=== PATIENT | male | born 1985 | race Caucasian/White ===

== ENCOUNTER 2020-09-01 12:49 | Emergency (ER) | payer MEDICAID, SELFPAY ==
[2020-09-01 12:51] VITALS: BP 126/82; PULSE 63; RESP 16; TEMP 36.9; O2SAT 98; BMI 29.7
--- NOTE | 2020-09-01 13:12 | HMH.EDGENADL ---
ED Disposition Clinical Impression: Abscess Disposition: Home, Self-Care Condition on Discharge: Good Instructions: DI for Skin Abscess Additional Instructions: You have been evaluated for skin infection, abscess. Please take Bactrim as prescribed. Keep the wound clean and dry for 24 hours. You may shower normally after that. Monitor for signs of infection, wound drainage, fevers, chills. Follow-up with your primary care doctor for wound check in 2 to 3 days. Return to the emergency department for any new or worsening symptoms. Prescriptions: Sulfamethoxazole/Trimethoprim [Bactrim DS tablet] 1 each PO BID #14 tab Transmission Status: Pending to Count Includes [facility] [id number] Referrals: Skyla Barker [Primary Care Provider] - Time of Disposition: 13:23 - Critical Care Critical Care Time: No Attestation: On 09/01/20, the high probability of a clinically significant, sudden or life threatening deterioration of the following system(s) required my full and direct attention, intervention and personal management. The time I documented below is in addition to time spent performing reported procedures but includes the following listed in this critical care notation. Medical Decision Making - Medical Records Medical records reviewed: Yes: I reviewed the patient's medical records. - Vladimir Inquiry Pt receiving controlled substance: No Vital Signs: 09/01/20 12:51 Temperature 98.4 F Temperature Source Oral Pulse Rate [Radial] 63 Respiratory Rate 16 Blood Pressure [Right Arm] 126/82 Blood Pressure Mean [Right Arm] 96 Blood Pressure Position [Right Arm] Sitting 02 Sat by Pulse Oximetry 98 Oxygen Delivery Method Room Air Medical Decision Narrative: In summary this is a 35-year-old male presenting to the emergency department with an area of painful swelling on his right upper inner arm. Patient clinically stable on arrival. Vital signs within normal limits. Physical exam is concerning for abscess versus cellulitis. He has already had drainage of purulence, concern for MRSA. Area anesthetized with 1% lidocaine. Small incision made. Drainage of 1 cc of fluid. No loculations. Patient's tetanus updated. Given prescription for Bactrim. Recommended to take as prescribed and to follow-up with his PCP for wound check in 5 to 7 days. Patient agreeable with plan and stable for discharge. General Adult HPI - General Chief complaint: Skin/Abscess/Foreign Body Stated complaint: possible staph infection right arm Time Seen by Provider: 09/01/20 13:16 Mode of Arrival: Ambulatory Limitations: No Limitations Description of Symptoms (Recalled from ER Triage Doc. by RN): TO ED PER PVT CAR WITH C/O SKIN INFECTION RT UPPER ARM STARTING TUESDAY. STATES YESTERDAY I POPPED IT AND WHITE STUFF CAME OUT PT DENIES ANY FEVER, CHILLS. - History of Present Illness HPI narrative: 35-year-old male presenting to the emergency department with a skin wound. For the past few days he has had an area of red, painful swelling on his right inner upper arm. It was initially small, now 2 cm x 2 cm in size. Yesterday it came to ahead and he drained some yellowish-white liquid. Continues to have surrounding erythema. No fevers, chills, nausea, vomiting. He does not remember his most recent tetanus vaccination. No recent antibiotics. Denies history of MRSA. - Related Data Previous Rx's Medication Instructions Recorded Sulfamethoxazole/Trimethoprim 1 each PO BID #14 tab 09/01/20 [Bactrim DS tablet] Allergies Allergy/AdvReac Type Severity Reaction Status Date / Time No Known Allergies Allergy Unverified 03/22/17 15:36 [facility] History - Hepatitis A Screen Drug use history?: No High risk sexual behaviors?: No History of sexually transmitted infection?: No Currently employed?: No Childcare worker?: No Do you have indoor plumbing?: Yes Do you have electricity?: Yes Attestation statement:: This patient has been screened for Hepatit
[2020-09-01 14:02] VITALS: BP 126/82; PULSE 63; RESP 16; TEMP 36.8; O2SAT 98
== END 2020-09-01 14:06 | disposition home or self-care (01) ==
PROVIDERS: Emergency Provider Emergency Medicine; PCP Nurse Practitioner
DX: L02.413 Cutaneous abscess of right upper limb (principal); Z23 Encounter for immunization
CPT/HCPCS: 10060; 90715; 96372; 99281

== ENCOUNTER 2024-09-19 12:04 | Emergency (ER) | payer MEDICAID, SELFPAY ==
[2024-09-19] VITALS (8 sets, daily range): BP systolic 120–152; BP diastolic 85–106; PULSE 68–96; RESP 14–20; TEMP 36.5–36.6; O2SAT 95–98; BMI 31.6
--- OUTSIDE RECORDS SUMMARY | 2024-09-19 12:17 | XMS_ITS | Continuity of Care Document ---
Author Organization Formerly [facility]. If a dditional information is needed, contact Health Information Management at [phone] [place] [address] Phone Care Team Providers Care Methods Time Analyst Name Role Phone Unavailable Unavailable Unavailable Unavailable Unavailable Unavailable Problems Nausea Onset:02-Nov-2019 Tawanda HAGER Status:Acute Epigastric pain Onset:02-Nov-2019 Tawanda HAGER Status:Acute Allergies and Adverse Reactions No Known Allergies(Allergy) Onset: 02-Nov-2019 Medications Reglan;0 .ROUTE .COMPLEX Start:02-Nov-2019 Status:Aborted Comments:0 .ROUTE .COMPLEX Social History Smoking Status Never smoked tobacco Recorded: 02-Nov-2019
--- NOTE | 2024-09-19 12:19 | ED_ITS ---
<Statement entered by France Helton MD - 09/19/24 15:18> I was consulted by the NICK, and we discussed the complexity of the problems being addressed. I approved the treatment and management plan for this patient's care in the emergency department, thus performing a substantive portion of the medical decision making. France Helton MD, CHHAYA, FACEP Discharge Plan Disposition Patient Disposition: Home, Self-Care Condition: Good Prescriptions Prescriptions: No Action sulfamethoxazole-trimethoprim 1 EACH tablet 1 each PO BID Qty: 14 0RF buprenorphine-naloxone [Suboxone] 8-2 mg Tablet, Sublingual 1 tab SUBLINGUAL DAILY Patient Comments: PT states he takes 14 mg daily. PT stated he is trying to taper himself down on own. Referrals Follow up/Referrals: Gustavo Phillips DO [Staff Physician, Family Practice] - See instructions Provider,Mylene, [Primary Care Provider, Medical] - See instructions Gary Duran MD [Staff Physician, Cardiology] - See instructions Activity Restrictions/Add. Instructions Additional Instructions/Restrictions: As we discussed I have given you referral both to primary care Dr. Phillips and cardiology. If you have persistent new or worsening signs or symptoms please establish care with your PCP see cardiology return to the ER as needed. Clinical Impressions Clinical Impression: Chest pain on breathing Print Language Print Language: Japanese Discharge ED Provider: France Helton [facility] General Chief Complaint: Shortness of Breath/Dyspnea Stated Complaint: SOA Time Seen by Provider: 09/19/24 12:19 History of Present Illness HPI narrative: Patient presents for evaluation of dyspnea. Patient states that he has had left-sided chest pain with inspiration since this morning. He denies any known trauma. He does not smoke has not run recently ill has no known medical problems and is on no home medications. He denies any fever chills hemoptysis hematochezia melena hematemesis hematuria. Related Data Home Medications ?Medication ?Instructions ?Recorded ?Confirmed buprenorphine 8 mg-naloxone 2 mg 1 tab sublingual GISELL Y 09/19/24 09/19/24 sublingual tablet Previous Rx's ?Medication ?Instructions ?Recorded sulfamethoxazole 800 1 each PO BID #14 tabs 09/01 mg-trimethoprim 160 mg tablet Allergies Allergy/AdvReac Type Severity Reaction Status Date / Time No Known Allergies Allergy Unverified 03/22/17 15:36 [facility] Disclaimer: The information contained in this section may have been updated after the patient was seen, as this information can be updated by other users. Social History Smoking Status: Never smoker alcohol intake: never current occupational status: employed Travel in the last 8 weeks?: None Other Medical History Have you received the Flu Vaccine for this season: No Have you received the Pneumonia Vaccine: No ROS Obtained: Yes Systems reviewed as appropriate & no additional complaints except as documented Physical Exam General General appearance: alert and in no apparent distress Respiratory Respiratory exam: Present normal lung sounds bilaterally Cardiovascular Cardiovascular exam: Present regular rate Neurological Exam Neurological exam: Present alert and oriented X3 HEART Score HEART Score HEART Score assessment performed?: Yes History (anamnesis): Slightly suspicious ECG: Normal Age: <45 years Risk factors: 1-2 risk factors Troponin: </= normal limit HEART Score: 1 Critical Care Critical Care Time Critical Care Time: No Medical Decision Making Medical Records Medical records reviewed: Yes I reviewed the patient's medical records. Vladimir Inquiry Pt receiving controlled substance: No Vital Signs Vital Signs: 09/19/24 12:16 09/19/24 12:20 09/19/24 12:48 Temperature 97.7 F Temperature Source Oral Pulse Rate 74 79 Pulse Rate [Right] 96 H Respiratory Rate 18 20 Blood Pressure 152/106 H 120/90 Blood Pressure [Right Arm] 152/106 H Blood Pressure Mean [Right Arm] 121 02 Sat by Pulse Oximetry 98 98 95 Oxygen Delivery Method Room Air Room Air Room Air 09/19/24 13:00 Temperature Temperature Source Pulse Rate 72 Pulse Rate [Right] Respiratory Rate 15 Blood Pressure 132/93 H Blood Pressure [Right Arm] Blood Pressure Mean [Right Arm] 02 Sat by Pulse Oximetry 96 Oxygen Delivery Method Room Air Lab Data Lab results reviewed: Yes I reviewed the patient's lab results. Labs: Lab Results 09/19/24 12:47: WBC 5.8, RBC 5.58, Hgb 15.6, Hct 45.9, MCV 82.3, MCH 28.0, MCHC 34.0, RDW 13.1, Plt Count 337, MPV 9.3, Neut % (Auto) 54.9, Lymph % (Auto) 34.4, Haywood % (Auto) 8.3, Eos % (Auto) 1.6, Baso % (Auto) 0.5, Neut # (Auto) 3.2, Lymph # (Auto) 2.0, Haywood # (Auto) 0.5, Eos # (Auto) 0.1, Baso # (Auto) 0.0, D-Dimer 0.39, Sodium 141, Potassium 4.0, Chloride 107, Carbon Dioxide 27, Anion Gap 11.0, BUN 11, Creatinine 0.90, Estimated Creat Clear 173, Estimated GFR 95, Est GFR ( Amer) 115, Glucose 91, Calcium 10.4 H, Total Bilirubin 0.7, AST 31, ALT 22, Alkaline Phosphatase 72, Troponin I < 0.01, Total Protein 8.7 H, Albumin 4.9, Globulin 3.8 H, Albumin/Globulin Ratio 1.3 09/19/24 12:47 09/19/24 12:47 Response Orders (Tests/Meds): ED MEDICATIONS Discontinued Medications Generic Name Dose Route Start Last Admin Trade Name Freq PRN Reason Stop Dose Admin Acetaminophen 1,000 mg 09/19/24 12:23 09/19/24 12:50 Acetaminophen 500mg Tab PO 09/19/24 12:24 1,000 mg ONCE ONE Administration Ketorolac Tromethamine 15 mg 09/19/24 12:23 09/19/24 12:49 Ketorolac 30mg/Ml Vial IV 09/19/24 12:24 15 mg ONCE ONE Administration ORDERS Category Date Time Status Chest XR 2 view (NOT portable) [XR chest 2V] Stat Exams 09/19/24 12:23 Taken CBC w/Auto Diff [Complete Blood Count Auto Diff] Stat Lab 09/19/24 12:47 Completed CMP [Comprehensive Metabolic Panel] Stat Lab 09/19/24 12:47 Completed D-Dimer Stat Lab 09/19/24 12:47 Completed Trop I [Troponin I] Stat Lab 09/19/24 12:47 Completed Troponin I Q3H Lab 09/19/24 15:30 Ordered Troponin I Q3H Lab 09/19/24 18:30 Ordered MDM Narrative Medical Decision Narrative: In summary patient is a 39-year-old male who presents to the emergency department for evaluation of left-sided pain with inspiration. Patient is hemodynamically stable upon arrival, afebrile. Exam is remarkable for no reproducible discomfort on palpation on inspiration or expiration, breath sounds clear and equal bilaterally to the bases without adventitious sounds or increased work of breathing, cardiac is S1 is 2 regular rate and rhythm without murmurs gallops rubs or thrills or dependent edema noted. Abdomen soft nontender no rebound or guarding or rigidity. Bowel sounds normal active.. Differential diagnosis includes ACS versus PE versus pleurisy versus pneumonia versus musculoskeletal cause etc. Initial workup will be conducted with hematologic labs plain film chest x-ray twelve-lead EKG. Initial interventions include Tylenol Toradol. Initial workup reviewed by me and his hematologic labs are nonactionable and his troponin is undetectable given the onset at 7 this morning 1 troponin being negative and a negative EKG rules out likely ACS. My informed interpretation of his plain film chest x-ray shows no acute processes prior to radiology read. Please final read formal interpretation.. Upon repeat evaluation patient reports his pain is down to a 1 from a 5 on arrival. Given this mother remains diagnostic uncertainty of the cause of his discomfort we have essentially ruled out any serious of life-threatening conditions and patient is comfortable going home with referral for PCP and cardiology should he have a continued persistent or new or worsening signs or symptoms.
--- OUTSIDE RECORDS SUMMARY | 2024-09-19 12:19 | XMS_ITS | Data Portability ---
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 Plan of Treatment Reminders Order Date Submit Date Provider Last Modified By Organization Details Last Modified Time Details Appointments None recorded. Lab hepatitis C virus RNA, quant, PCR, serum or plasma 2023 024 [email or web address] 2 [facility] (Lab Registration) , [address] [place] [address] [place], [address], 4 10:09:04 hepatic function panel, serum 2022 023 [email or web address] 4 [facility] (Lab Registration) , [address] [place] [address] [place], [address], 3 09:12:10 hepatitis C virus RNA, quant, PCR, serum or plasma 2022 023 [email or web address] 4 [facility] (Lab Registration) , [address] [place] [address] [place], [address], 3 09:12:10 hepatic function panel, serum [facility] , [address] [place] [address] [place], [address], 3 17:10:36 hepatitis C virus RNA, quant, PCR, serum or plasma 2022 023 4 [facility] (Lab Registration) , [address] [place] [address] [place], [address], 3 10:43:54 hepatic function panel, serum 2022 023 [email or web address] [facility] (Lab Registration) , [address] [place] [address] [place], [address], 3 12:08:58 hepatitis C virus RNA, quant, PCR, serum or plasma 2022 023 [email or web address] 4 [facility] (Lab Registration) , [address] [place] [address] [place], [address], 3 12:48:05 Referral None recorded. Procedures None recorded. Surgeries None recorded. Imaging None recorded. Medication Orders None recorded. Patient TargetsNo targets recorded. Patient InstructionsNo instructions recorded. Reason for Referral None Reported. Results Created Date Observation Date Name Description Value Unit Range Abnormal Flag Note LastModifiedBy Organization Detail LastModifiedTime 07/08/1907/07/2022 HEPAT IC FUNCT ION PANEL total protein 8.0 g/dL 6.4-8. 2 Not Available [facility] (Lab Registration) [address] [place], [address], 07/07/2022 15:15:44 07/08/19 23 07/07/2022 HEPAT IC FUNCT ION PANEL albumin 4.3 g/dL 3.4-5. 0 Not Available [facility] (Lab Registration) [address] [place], [address], 07/07/2022 15:15:44 07/08/19 23 07/07/2022 HEPAT IC FUNCT ION PANEL bilirubin direct 0.1 mg/dL 0.0-0. 3 Not Available [facility] (Lab Registration) [address] [place], [address], 07/07/2022 15:15:44 07/08/19 23 07/07/2022 HEPAT IC FUNCT ION PANEL bilirubin total 0.5 mg/dL 0.4-1. 5 Not Available [facility] (Lab Registration) [address] [place], [address], 07/07/2022 15:15:44 07/08/19 23 07/07/2022 HEPAT IC FUNCT ION PANEL AST (SGOT) 23 U/L 15-37 Not Available [facility] (Lab Registration) [address] [place], [address], 07/07/2022 15:15:44 07/08/19 23 07/07/2022 HEPAT IC FUNCT ION PANEL ALT (SGPT) 27 U/L 12-78 Not Available [facility] (Lab Registration) [address] [place], [address], 07/07/2022 15:15:44 07/08/19 23 07/07/2022 HEPAT IC FUNCT ION PANEL alk phosphatase 80 U/L 50-170 Not Available [facility] (Lab Registration) [address] [place], [address], 07/07/2022 15:15:44 07/08/19 23 07/07/2022 HEPAT IC FUNCT ION PANEL note Unles s other pelaez noted testi ng perfo rmed at: [facility] [address] [place] [address] [phone] Bro jarrett MD CLIA: [id number] Not Available [facility] (Lab Registration) [address] [place], [address], 07/07/2022 15:15:44 07/08/19 23 07/07/2022 HCV RT-PC R, QUANT NON GRAPH note Unles s other pelaez noted testi ng perfo rmed at: [facility] [address] [place] [phone] Bro jarrett MD CLIA: [id number] Not Available [facility] (Lab Registration) [address] [place], [address], 07/09/2022 20:11:11 07/08/19 23 07/09/2022 HCV RT-PC R, QUANT NON GRAPH HCV test information Commen t . The quant itati ve range of this assay is 15 IU/mL to 100 nico on IU/mL . Perfo rmed at: [facility] [place] [address] [facility] , [place] [address] Lab Direc tor: Marcelle baltazar MD, Phone : [phone] Not Available [facility] (Lab Registration) [address] [place], [address], 07/09/2022 20:11:11 07/08/19 23 07/09/2022 HCV RT-PC R, QUANT NON GRAPH hepatitis C quantitation <15 IU/mL HCV RNA detec katia Not Available [facility] (Lab Registration) [address] [place], [address], 07/09/2022 20:11:11 09/09/19 23 09/08/2022 HEPAT IC FUNCT ION PANEL total protein 7.4 g/dL 6.4-8. 2 Not Available [facility] (Lab Registration) [address] [place], [address], 09/08/2022 11:35:13 09/09/19 23 09/08/2022 HEPAT IC FUNCT ION PANEL albumin 4.0 g/dL 3.4-5. 0 Not Available [facility] (Lab Registration) [address] [place], [address], 09/08/2022 11:35:13 09/09/19 23 09/08/2022 HEPAT IC FUNCT ION PANEL bilirubin direct 0.1 mg/dL 0.0-0. 3 Not Available [facility] (Lab Registration) [address] [place], [address], 09/08/2022 11:35:13 09/09/19 23 09/08/2022 HEPAT IC FUNCT ION PANEL bilirubin total 0.4 mg/dL 0.4-1. 5 Not Available [facility] (Lab Registration) [address] [place], [address], 09/08/2022 11:35:13 09/09/19 23 09/08/2022 HEPAT IC FUNCT ION PANEL AST (SGOT) 22 U/L 15-37 Not Available [facility] (Lab Registration) [address] [place], [address], 09/08/2022 11:35:13 09/09/19 23 09/08/2022 HEPAT IC FUNCT ION PANEL ALT (SGPT) 27 U/L 12-78 Not Available [facility] (Lab Registration) [address] [place], [address], 09/08/2022 11:35:13 09/09/19 23 09/08/2022 HEPAT IC FUNCT ION PANEL alk phosphatase 74 U/L 50-170 Not Available [facility] (Lab Registration) [address] [place], [address], 09/08/2022 11:35:13 09/09/19 23 09/08/2022 HEPAT IC FUNCT ION PANEL note Unles s other pelaez noted testi ng perfo rmed at: [facility] [address] [place] [address] [phone] Bro jarrett MD CLIA: [id number] Not Available [facility] (Lab Registration) [address] [place], [address], 09/08/2022 11:35:13 09/09/19 23 09/08/2022 HCV RNA BY PCR QN RFX GENOT YPE note Unles s other pelaez noted testi ng perfo rmed at: [facility] [address] [place] [address] [phone] Bro jarrett MD CLIA: [id number] Not Available [facility] (Lab Registration) [address] [place], [address], 09/09/2022 20:15:19 09/09/19 23 09/09/2022 HCV RNA BY PCR QN RFX GENOT YPE [email or web address] HCV Not Detect ed IU/mL Not Available [facility] (Lab Registration) [address] [place], [address], 09/09/2022 20:15:19 09/09/19 23 09/09/2022 HCV RNA BY PCR QN RFX GENOT YPE HCV log10 TNP log10 _IU/m L Unabl e to calcu late resul t since non-n umeri c resul t obtai best for compo nent test. Not Available [facility] (Lab Registration) [address] [place], [address], 09/09/2022 20:15:19 09/09/19 23 09/09/2022 HCV RNA BY PCR QN RFX GENOT YPE HCV test information Commen t . The quant itati ve range of this assay is 15 IU/mL to 100 nico on IU/mL . Not Available [facility] (Lab Registration) [address] [place], [address], 09/09/2022 20:15:19 09/09/19 23 09/09/2022 HCV RNA BY PCR QN RFX GENOT YPE HCV genotype TNP Not indic ated Perfo rmed at: [facility] [place] [address] [facility] [place] [address] Lab Direc tor: Marcelle baltazar MD, Phone : [phone] Not Available [facility] (Lab Registration) [address] [place], [address], 09/09/2022 20:15:19 12/16/19 23 12/15/2022 HEPAT IC FUNCT ION PANEL total protein 7.9 g/dL 6.4-8. 2 Not Available [facility] (Lab Registration) [address] [place], [address], 12/15/2022 17:10:36 12/16/19 23 12/15/2022 HEPAT IC FUNCT ION PANEL albumin 4.1 g/dL 3.4-5. 0 Not Available [facility] (Lab Registration) [address] [place], [address], 12/15/2022 17:10:36 12/16/19 23 12/15/2022 HEPAT IC FUNCT ION PANEL bilirubin direct 0.1 mg/dL 0.0-0. 3 Not Available [facility] (Lab Registration) [address] [place], [address], 12/15/2022 17:10:36 12/16/19 23 12/15/2022 HEPAT IC FUNCT ION PANEL bilirubin total 0.4 mg/dL 0.4-1. 5 Not Available [facility] (Lab Registration) [address] [place], [address], 12/15/2022 17:10:36 12/16/19 23 12/15/2022 HEPAT IC FUNCT ION PANEL AST (SGOT) 21 U/L 15-37 Not Available [facility] (Lab Registration) [address] [place], [address], 12/15/2022 17:10:36 12/16/19 23 12/15/2022 HEPAT IC FUNCT ION PANEL ALT (SGPT) 24 U/L 12-78 Not Available [facility] (Lab Registration) [address] [place], [address], 12/15/2022 17:10:36 12/16/19 23 12/15/2022 HEPAT IC FUNCT ION PANEL alk phosphatase 116 U/L 50-170 Not Available [facility] (Lab Registration) [address] [place], [address], 12/15/2022 17:10:36 12/16/19 23 12/15/2022 HEPAT IC FUNCT ION PANEL note Unles s other pelaez noted testi ng perfo rmed at: [facility] [address] [place] [address] [phone] Bro jarrett MD CLIA: [id number] Not Available [facility] (Lab Registration) [address] [place], [address], 12/15/2022 17:10:36 12/16/19 23 12/15/2022 HCV RT-PC R, QUANT NON GRAPH note Unles s other pelaez noted testi ng perfo rmed at: [facility] [address] [place] [address] [phone] Bro jarrett MD CLIA: [id number] Not Available [facility] (Lab Registration) [address] [place], [address], 12/17/2022 23:10:43 12/16/19 23 12/17/2022 HCV RT-PC R, QUANT NON GRAPH HCV test information Commen t . The quant itati ve range of this assay is 15 IU/mL to 100 nico on IU/mL . [facility] at: [facility] [place] [address] [place] [place] [address] Lab Direc tor: Marcelle baltazar MD, Phone : [phone] Not Available [facility] (Lab Registration) [address] [place], [address], 12/17/2022 23:10:43 12/16/19 23 12/17/2022 HCV RT-PC R, QUANT NON GRAPH hep C qt HCV Not Detect ed IU/mL Not Available [facility] (Lab Registration) [address] [place], [address], 12/17/2022 23:10:43 04/06/19 24 04/06/2023 HEPAT IC FUNCT ION PANEL total protein 7.8 g/dL 6.4-8. 2 Not Available [facility] (Lab Registration) [address] [place], [address], 04/06/2023 13:33:27 04/06/19 24 04/06/2023 HEPAT IC FUNCT ION PANEL albumin 4.3 g/dL 3.4-5. 0 Not Available [facility] (Lab Registration) [address] [place], [address], 04/06/2023 13:33:27 04/06/19 24 04/06/2023 HEPAT IC FUNCT ION PANEL bilirubin direct 0.2 mg/dL 0.0-0. 3 Not Available [facility] (Lab Registration) [address], [place], [address], 04/06/2023 13:33:27 04/06/19 24 04/06/2023 HEPAT IC FUNCT ION PANEL bilirubin total 0.8 mg/dL 0.4-1. 5 Not Available [facility] (Lab Registration) [address], [place], [address], 04/06/2023 13:33:27 04/06/19 24 04/06/2023 HEPAT IC FUNCT ION PANEL AST (SGOT) 21 U/L 15-37 Not Available [facility] (Lab Registration) [address], [place], [address], 04/06/2023 13:33:27 04/06/19 24 04/06/2023 HEPAT IC FUNCT ION PANEL ALT (SGPT) 21 U/L 12-78 Not Available [facility] (Lab Registration) [address] [place], [address], 04/06/2023 13:33:27 04/06/19 24 04/06/2023 HEPAT IC FUNCT ION PANEL alk phosphatase 138 U/L 50-170 Not Available [facility] (Lab Registration) [address] [place], [address], 04/06/2023 13:33:27 04/06/19 24 04/06/2023 HEPAT IC FUNCT ION PANEL note Unles s other pelaez noted testi ng perfo rmed at: [facility] [address] [place] [address] [phone] Bro jarrett MD CLIA: [id number] Not Available [facility] (Lab Registration) [address] [place], [address], 04/06/2023 13:33:27 04/06/19 24 04/06/2023 HCV RNA BY PCR QN RFX GENOT YPE note Unles s other pelaez noted testi ng perfo rmed at: [facility] [address] [place] [address] [phone] Bro jarrett MD CLIA: [id number] Not Available [facility] (Lab Registration) [address] [place], [address], 04/11/2023 09:10:37 04/06/19 24 04/11/2023 HCV RNA BY PCR QN RFX GENOT YPE hepatitis C quantitation 044549 0 IU/mL Not Available [facility] (Lab Registration) [address] [place], [address], 04/11/2023 09:10:37 04/06/19 24 04/11/2023 HCV RNA BY PCR QN RFX GENOT YPE HCV log10 6.093 log10 _IU/m L Not Available [facility] (Lab Registration) [address] [place], [address], 04/11/2023 09:10:37 04/06/19 24 04/11/2023 HCV RNA BY PCR QN RFX GENOT YPE HCV test information Commen t . The quant itati ve range of this assay is 15 IU/mL to 100 nico on IU/mL . Not Available [facility] (Lab Registration) [address] [place], [address], 04/11/2023 09:10:37 04/06/19 24 04/11/2023 HCV RNA BY PCR QN RFX GENOT YPE HCV genotype Commen t To be perfo rmed on this speci men. Perfo rmed at: [facility] [place] [address] , [place] [address] Lab Direc tor: Marcelle baltazar MD, Phone : [phone] Not Available [facility] (Lab Registration) [address] [place], [address], 04/11/2023 09:10:37 04/06/19 24 04/06/2023 HCV RNA BY PCR QN RFX GENOT YPE note Unles s other pelaez noted testi ng perfo rmed at: [facility] [address] [facility] [place] [address] [phone] Bro jarrett MD CLIA: [id number] Not Available [facility] (Lab Registration) [address] [place], [address], 04/11/2023 09:10:38 04/06/19 24 04/11/2023 HCV RNA BY PCR QN RFX GENOT YPE hepatitis C quantitation [id number] 0 IU/mL Not Available [facility] (Lab Registration) [address] [place], [address], 04/11/2023 09:10:38 04/06/19 24 04/11/2023 HCV RNA BY PCR QN RFX GENOT YPE HCV log10 6.093 log10 _IU/m L Not Available [facility] (Lab Registration) [address] [place], [address], 04/11/2023 09:10:38 04/06/19 24 04/11/2023 HCV RNA BY PCR QN RFX GENOT YPE HCV test information Commen t . The quant itati ve range of this assay is 15 IU/mL to 100 nico on IU/mL . Not Available [facility] (Lab Registration) [address] [place], [address], 04/11/2023 09:10:38 04/06/19 24 04/11/2023 HCV RNA BY PCR QN RFX GENOT YPE HCV genotype Commen t To be perfo rmed on this speci men. Perfo rmed at: [facility] [place] [address] [place] [address] Lab Direc tor: Marcelle baltazar MD, Phone : [phone] Not Available [facility] (Lab Registration) [address] [place], [address], 04/11/2023 09:10:38 04/06/19 24 04/11/2023 HCV RNA BY PCR QN RFX GENOT YPE hepatitis C genotype 3 Not Available [facility] (Lab Registration) [address] [place], [address], 04/11/2023 09:10:38 04/06/19 24 04/11/2023 HCV RNA BY PCR QN RFX GENOT YPE please note Commen t . This test was devel oped and its perfo rmanc e sandra cteri stics deter mined by [employer]. It has not been clear ed or appro john by the U.S. Food and Drug Admin istra tion. . The FDA has deter mined that such clear ance or appro bre is not neces luis alfredo. This test is used for clini diana purpo ses. It shoul d not be regar ded as inves tigat ional or for resea [facility]. Perfo rmed at: [facility] [place] [address] [place] [address] Lab Direc tor: Marcelle baltazar MD, Phone : [phone] Not Available [facility] (Lab Registration) [address] [place], [address], 04/11/2023 09:10:38 04/14/19 24 04/14/2023 CBC AUTO W DIFF WBC 7.1 10 4.5-11 .5 Not Available [facility] (Lab Registration) [address] [place], [address], 04/14/2023 16:47:56 04/14/19 24 04/14/2023 CBC AUTO W DIFF RBC 5.29 10 4.25-5 .57 Not Available [facility] (Lab Registration) [address] [place], [address], 04/14/2023 16:47:56 04/14/19 24 04/14/2023 CBC AUTO W DIFF HGB 14.2 g/dL 13.5-1 7.2 Not Available [facility] (Lab Registration) [address] [place], [address], 04/14/2023 16:47:56 04/14/19 24 04/14/2023 CBC AUTO W DIFF HCT 42.3 % 42.0-5 2.0 Not Available [facility] (Lab Registration) [address] [place], [address], 04/14/2023 16:47:56 04/14/19 24 04/14/2023 CBC AUTO W DIFF MCV 80.0 fL 80-95 Not Available [facility] (Lab Registration) [address] [place], [address], 04/14/2023 16:47:56 04/14/19 24 04/14/2023 CBC AUTO W DIFF MCH 26.8 pg 27.0-3 4.0 low Not Available [facility] (Lab Registration) [address] [place], [address], 04/14/2023 16:47:56 04/14/19 24 04/14/2023 CBC AUTO W DIFF MCHC 33.6 g/dL 32.0-3 6.0 Not Available [facility] (Lab Registration) [address] [place], [address], 04/14/2023 16:47:56 04/14/19 24 04/14/2023 CBC AUTO W DIFF platelet count 359 10 150-45 0 Not Available [facility] (Lab Registration) [address] [place], [address], 04/14/2023 16:47:56 04/14/19 24 04/14/2023 CBC AUTO W DIFF RDW 13.7 % 12.3-1 5.1 Not Available [facility] (Lab Registration) [address] [place], [address], 04/14/2023 16:47:56 04/14/19 24 04/14/2023 CBC AUTO W DIFF MPV 9.2 fL 7.4-10 .4 Not Available [facility] (Lab Registration) [address] [place], [address], 04/14/2023 16:47:56 04/14/19 24 04/14/2023 CBC AUTO W DIFF granulocyte% 50.3 % 40-75 Not Available [facility] (Lab Registration) [address] [place], [address], 04/14/2023 16:47:56 04/14/19 24 04/14/2023 CBC AUTO W DIFF lymphocyte% 40.1 % 15-57 Not Available [facility] (Lab Registration) [address] [place], [address], 04/14/2023 16:47:56 04/14/19 24 04/14/2023 CBC AUTO W DIFF monocyte% 7.3 % 4.0-12 .0 Not Available [facility] (Lab Registration) [address] [place], [address], 04/14/2023 16:47:56 04/14/19 24 04/14/2023 CBC AUTO W DIFF eosinophil% 1.8 % 0.0-4. 0 Not Available [facility] (Lab Registration) [address] [place], [address], 04/14/2023 16:47:56 04/14/19 24 04/14/2023 CBC AUTO W DIFF basophil% 0.4 % 0.0-1. 0 Not Available [facility] (Lab Registration) [address] [place], [address], 04/14/2023 16:47:56 04/14/19 24 04/14/2023 CBC AUTO W DIFF immature granulocytes % 0.1 % 0.0-0. 8 Not Available [facility] (Lab Registration) [address] [place], [address], 04/14/2023 16:47:56 04/14/19 24 04/14/2023 CBC AUTO W DIFF granulocyte# 3.56 10 Not Available [facility] (Lab Registration) [address] [place], [address], 04/14/2023 16:47:56 04/14/19 24 04/14/2023 CBC AUTO W DIFF lymphocyte# 2.84 10 Not Available [facility] (Lab Registration) [address] [place], [address], 04/14/2023 16:47:56 04/14/19 24 04/14/2023 CBC AUTO W DIFF monocyte# 0.52 10 Not Available [facility] (Lab Registration) [address] [place], [address], 04/14/2023 16:47:56 04/14/19 24 04/14/2023 CBC AUTO W DIFF eosinophil# 0.13 10 Not Available [facility] (Lab Registration) [address] [place], [address], 04/14/2023 16:47:56 04/14/19 24 04/14/2023 CBC AUTO W DIFF basophil# 0.03 10 Not Available [facility] (Lab Registration) [address] [place], [address], 04/14/2023 16:47:56 04/14/19 24 04/14/2023 CBC AUTO W DIFF immature granulocytes # 0.01 10 Not Available [facility] (Lab Registration) [address] [place], [address], 04/14/2023 16:47:56 04/14/19 24 04/14/2023 CBC AUTO W DIFF manual differential NO Not Available [facility] (Lab Registration) [address], [address], 04/14/2023 16:47:56 04/14/19 24 04/14/2023 CBC AUTO W DIFF note Unles s other pelaez noted testi ng perfo rmed at: [facility] [address] [place] [address] [phone] Bro jarrett MD CLIA: [id number] Not Available [facility] (Lab Registration) [address] [place], [address], 04/14/2023 16:47:56 04/14/19 24 04/14/2023 PT (PROT HROMB IN TIME) W INR PT (prothrombin time) 10.5 secon ds 9.1-12 .0 Not Available [facility] (Lab Registration) [address] [place], [address], 04/14/2023 16:56:41 04/14/19 24 04/14/2023 PT (PROT HROMB IN TIME) W INR INR 0.95 0.9-1. 1 INR is inten ded to be used only for patie nts on stabl e oral anti- coagu lant thera py. *Ther apeut ic Range s 2.0 - 3.0 Usual Thera peuti c Range 2.5 - 3.5 For patie nts with a histo ry of multi ple deep vein throm bus or mecha nical heart valve s. Not Available [facility] (Lab Registration) [address] [place], [address], 04/14/2023 16:56:41 04/14/19 24 04/14/2023 PT (PROT HROMB IN TIME) W INR note Unles s other pelaez noted testi ng perfo rmed at: [facility] [address] [place] [address] [phone] Bro jarrett MD CLIA: [id number] Not Available [facility] (Lab Registration) [address] [place], [address], 04/14/2023 16:56:41 04/14/19 24 04/14/2023 COMP METAB OLIC PANEL sodium 141 mmol/ L 136-14 5 Not Available [facility] (Lab Registration) [address] [place], [address], 04/14/2023 17:05:33 04/14/19 24 04/14/2023 COMP METAB OLIC PANEL potassium 3.4 mmol/ L 3.5-5. 1 low Not Available [facility] (Lab Registration) [address] [place], [address], 04/14/2023 17:05:33 04/14/19 24 04/14/2023 COMP METAB OLIC PANEL chloride 101 mmol/ L 98-107 Not Available [facility] (Lab Registration) [address] [place], [address], 04/14/2023 17:05:33 04/14/19 24 04/14/2023 COMP METAB OLIC PANEL carbon dioxide 28 mmol/ L 21-32 Not Available [facility] (Lab Registration) [address] [place], [address], 04/14/2023 17:05:33 04/14/19 24 04/14/2023 COMP METAB OLIC PANEL anion gap 12.0 Not Available [facility] (Lab Registration) [address] [place], [address], 04/14/2023 17:05:33 04/14/19 24 04/14/2023 COMP METAB OLIC PANEL glucose 62 mg/dL 70-110 low Not Available [facility] (Lab Registration) [address] [place], [address], 04/14/2023 17:05:33 04/14/19 24 04/14/2023 COMP METAB OLIC PANEL blood urea nitrogen 8 mg/dL 7-18 Not Available [facility] (Lab Registration) [address] [place], [address], 04/14/2023 17:05:33 04/14/19 24 04/14/2023 COMP METAB OLIC PANEL creatinine 1.1 mg/dL 0.8-1. 3 Not Available [facility] (Lab Registration) [address] [place], [address], 04/14/2023 17:05:33 04/14/19 24 04/14/2023 COMP METAB OLIC PANEL BUN/creatini ne ratio 7.3 ratio 9-21 low Not Available [facility] (Lab Registration) [address] [place], [address], 04/14/2023 17:05:33 04/14/19 24 04/14/2023 COMP METAB OLIC PANEL estimated glom filtration rate 81 mL/mi n >60- Not Available [facility] (Lab Registration) [address] [place], [address], 04/14/2023 17:05:33 04/14/19 24 04/14/2023 COMP METAB OLIC PANEL total protein 8.5 g/dL 6.4-8. 2 high Not Available [facility] (Lab Registration) [address] [place], [address], 04/14/2023 17:05:33 04/14/19 24 04/14/2023 COMP METAB OLIC PANEL albumin 4.7 g/dL 3.4-5. 0 Not Available [facility] (Lab Registration) [address] [place], [address], 04/14/2023 17:05:33 04/14/19 24 04/14/2023 COMP METAB OLIC PANEL calcium 9.5 mg/dL 8.5-10 .1 Not Available [facility] (Lab Registration) [address] [place], [address], 04/14/2023 17:05:33 04/14/19 24 04/14/2023 COMP METAB OLIC PANEL corrected calcium 8.9 mg/dL 8.5-10 .1 Not Available [facility] (Lab Registration) [address] [place], [address], 04/14/2023 17:05:33 04/14/19 24 04/14/2023 COMP METAB OLIC PANEL bilirubin total 0.6 mg/dL 0.4-1. 5 Not Available [facility] (Lab Registration) [address] [place], [address], 04/14/2023 17:05:33 04/14/19 24 04/14/2023 COMP METAB OLIC PANEL AST (SGOT) 22 U/L 15-37 Not Available [facility] (Lab Registration) [address] [place], [address], 04/14/2023 17:05:33 04/14/19 24 04/14/2023 COMP METAB OLIC PANEL ALT (SGPT) 24 U/L 12-78 Not Available [facility] (Lab Registration) [address] [place], [address], 04/14/2023 17:05:33 04/14/19 24 04/14/2023 COMP METAB OLIC PANEL alk phosphatase 130 U/L 50-170 Not Available [facility] (Lab Registration) [address] [place], [address], 04/14/2023 17:05:33 04/14/19 24 04/14/2023 COMP METAB OLIC PANEL note Unles s other pelaez noted testi ng perfo rmed at: [facility] [address] [facility] [place] [address] [phone] Bro jarrett MD CLIA: [id number] Not Available [facility] (Lab Registration) [address] [place], [address], 04/14/2023 17:05:33 04/14/19 24 04/14/2023 HEP C FIBRO SURE note Unles s other pelaez noted testi ng perfo rmed at: [facility] [address] [address] [phone] Bro jarrett MD CLIA: [id number] Not Available [facility] (Lab Registration) [address] [place], [address], 04/19/2023 02:12:11 04/14/19 24 04/19/2023 HEP C FIBRO SURE bilirubin, total 0.3 mg/dL 0.0-1. 2 SENT TO REFER ENCE LAB Not Available [facility] (Lab Registration) [address] [place], [address], 04/19/2023 02:12:11 04/14/19 24 04/19/2023 HEP C FIBRO SURE fibrosis score 0.06 0.00-0 .21 SENT TO REFER ENCE LAB Not Available [facility] (Lab Registration) [address] [place], [address], 04/19/2023 02:12:11 04/14/19 24 04/19/2023 HEP C FIBRO SURE ALT (SGPT) p5p 19 IU/L 0-55 SENT TO REFER ENCE LAB Not Available [facility] (Lab Registration) [address] [place], [address], 04/19/2023 02:12:11 04/14/19 24 04/19/2023 HEP C FIBRO SURE GGT 18 IU/L 0-65 SENT TO REFER ENCE LAB Not Available [facility] (Lab Registration) [address] [place], [address], 04/19/2023 02:12:11 04/14/19 24 04/19/2023 HEP C FIBRO SURE fibrosis stage COMMEN T F0 - No fibro sis SENT TO REFER ENCE LAB Not Available [facility] (Lab Registration) [address] [place], [address], 04/19/2023 02:12:11 04/14/19 24 04/19/2023 HEP C FIBRO SURE alpha 2-macroglobu blanca, qn 150 mg/dL 110-27 6 SENT TO REFER ENCE LAB Not Available [facility] (Lab Registration) [address], [place], [address], 04/19/2023 02:12:11 04/14/19 24 04/19/2023 HEP C FIBRO SURE apolipoprote in A-1 128 mg/dL 101-17 8 SENT TO REFER ENCE LAB Not Available [facility] (Lab Registration) [address], [place], [address], 04/19/2023 02:12:11 04/14/19 24 04/19/2023 HEP C FIBRO SURE necroinflamm at activity score 0.05 0.00-0 .17 SENT TO REFER ENCE LAB Not Available [facility] (Lab Registration) [address], [place], [address], 04/19/2023 02:12:11 04/14/19 24 04/19/2023 HEP C FIBRO SURE haptoglobin 190 mg/dL 17-317 SENT TO REFER ENCE LAB Not Available [facility] (Lab Registration) [address] [place], [address], 04/19/2023 02:12:11 04/14/19 24 04/19/2023 HEP C FIBRO SURE necroinflamm at activity grade A0-NO ACTIVI TY SENT TO REFER ENCE LAB Not Available [facility] (Lab Registration) [address] [place], [address], 04/19/2023 02:12:11 04/14/19 24 04/19/2023 HEP C FIBRO SURE fibrosis scoring: COMMEN T . <=0.2 1 = Stage F0 - No fibro sis 0.21 - 0.27 = Stage F0 - F1 0.27 - 0.31 = Stage F1 - Fe l fibro sis 0.31 - 0.48 = Stage F1 - F2 0.48 - 0.58 = Stage F2 - Bridg ing fibro sis with few septa 0.58 - 0.72 = Stage F3 - Bridg ing fibro sis with many septa 0.72 - 0.74 = Stage F3 - F4 >0.74 = Stage F4 - Cirrh osis SENT TO REFER ENCE LAB Not Available [facility] (Lab Registration) [address] [place], [address], 04/19/2023 02:12:11 04/14/19 24 04/19/2023 HEP C FIBRO SURE interpretati ons: COMMEN T . Quant itati ve resul ts of 6 bioch emica l tests are colin zed using a compu tatio nal algor ithm to provi de a quant itati ve surro gate marke r (0.0- 1.0) for liver fibro sis (META VIR F0- F4) and for necro infla mmato ry activ ity (META VIR A0-A3 ). SENT TO REFER ENCE LAB Not Available [facility] (Lab Registration) [address], [place], [address], 04/19/2023 02:12:11 04/14/19 24 04/19/2023 HEP C FIBRO SURE necroinflamm activity scoring: COMMEN T . <0.17 = Grade A0 - No Activ ity 0.17 - 0.29 = Grade A0 - A1 0.29 - 0.36 = Grade A1 - Minim al activ ity 0.36 - 0.52 = Grade A1 - A2 0.52 - 0.60 = Grade A2 - Moder ate activ ity 0.60 - 0.62 = Grade A2 - A3 >0.62 = Grade A3 - Sever e activ ity SENT TO REFER ENCE LAB Not Available [facility] (Lab Registration) [address] [place], [address], 04/19/2023 02:12:11 04/14/19 24 04/19/2023 HEP C FIBRO SURE limitations: COMMEN T The negat sameera predi ctive value of a Fibro test score <0.31 (abse nce of clini wojciech signi fican t fibro sis) was 85% when miriam red to liver biops y in 1,270 HCV infec katia patie nts with a 38% preva lence of signi fican t liver fibro sis (F2, 3 or 4). The posit sameera predi ctive value of a Fibro -test score >0.48 (F2, 3, 4) was 61% in that same patie nt cohor t. HCV Fibro SURE is not recom victoriano d in patie nts with Gilbe rt Disea se, acute hemol ysis (e.g. HCV ribav irin thera py media katia hemol ysis) acute hepa- titis of the liver , extra - hepat ic angi stasi s, trans plant patie nts, and/o r renal insuf ficie ncy patie nts. Any of these clini diana situa tions may lead to inacc urate quant itati ve predi ction s of fibro sis and necro infla mmato ry activ ity in the liver . SENT TO REFER ENCE LAB Not Available [facility] (Lab Registration) [address], [place], [address], 04/19/2023 02:12:11 04/14/19 24 04/19/2023 HEP C FIBRO SURE methodology: ISIDRA T . The colin batool teste d are perfo rmed by Fibro Sure- Speci fic metho ds. Not inten ded for use with other diagn ostic consi derat ions. Not Available [facility] (Lab Registration) [address], [place], [address], 04/19/2023 02:12:11 04/14/1904/19/2023 HEP C FIBRO SURE comment: COMMEN T . This test was devel oped and its perfo rmanc e sandra cteri stics deter mined by [facility]. It has not been clear ed or appro john by the Food and Drug Admin istra tion. The FDA has deter mined that such clear ance or appro bre is not neces luis alfredo. . For quest ions regar ding this repor t pleas e conta ct custo tomasa servi ce at [phone]. Perfo rmed at: [facility] [place] [address] , [place] [address] Lab Direc tor: Marcelle baltazar MD, Phone : [phone] Not Available [facility] (Lab Registration) [address] [place], [address], 04/19/2023 02:12:11 04/14/19 24 04/14/2023 HEPAT ITIS PANEL (A,B AND C) note Unles s other pelaez noted testi ng perfo rmed at: [facility] [address] [place] [address] [phone] Bro jarrett MD CLIA: [id number] Not Available [facility] (Lab Registration) [address] [place], [address], 04/20/2023 14:15:49 04/14/19 24 04/20/2023 HEPAT ITIS PANEL (A,B AND C) hep A Ab, total Negati ve negati ve Comme nt: The HAV total antib karon assay detec ts both IgG and IgM but does not diffe renti ate betwe en them. A negat sameera resul t sugge sts susce ptibi lity to infec tion. A posit sameera resul t could be due to vacci natio n, previ ously resol john infec tion or activ e infec tion. Testi ng for HAV IgM shoul d be perfo rmed if activ e HAV infec tion is suspe cted. [facility] offer s profi les that will autom atica lly refle x posit sameera HAV total antib karon resul ts to IgM (e.g. , panel #[id number] HAV Antib karon w/ Rfx). Not Available [facility] (Lab Registration) [address] [place], [address], 04/20/2023 14:15:49 04/14/19 24 04/20/2023 HEPAT ITIS PANEL (A,B AND C) HBsAg screen Negati ve negati ve SENT TO REFER ENCE LAB Not Available [facility] (Lab Registration) [address] [place], [address], 04/20/2023 14:15:49 04/14/19 24 04/20/2023 HEPAT ITIS PANEL (A,B AND C) hep B core Ab, tot Negati ve negati ve SENT TO REFER ENCE LAB Not Available [facility] (Lab Registration) [address] [place], [address], 04/20/2023 14:15:49 04/14/19 24 04/20/2023 HEPAT ITIS PANEL (A,B AND C) reflex to hbc IgM Commen t Refle x crite zaria was not met. Not Available [facility] (Lab Registration) [address] [place], [address], 04/20/2023 14:15:49 04/14/19 24 04/20/2023 HEPAT ITIS PANEL (A,B AND C) hep B surface Ab Reacti ve Non React sameera: Incon siste nt with immun ity, less than 10 mIU/m L React sameera: Consi stent with immun ity, great er than 9.9 mIU/m L HBSAB : Non React sameera: Incon siste nt with immun ity, less than 10 mIU/m L HBSAB : React sameera: Consi stent with immun ity great er than 9.9 Cuauhtemoc/m L Not Available [facility] (Lab Registration) [address] [place], [address], 04/20/2023 14:15:49 04/14/19 24 04/20/2023 HEPAT ITIS PANEL (A,B AND C) HCV Ab Reacti ve non reacti ve delta Perfo rmed at: - [facility] [address] [place] [address] Lab Direc tor: Asael aguilera PhD, Phone : [phone] SENT TO REFER ENCE LAB Not Available [facility] (Lab Registration) [address] [place], [address], 04/20/2023 14:15:49 04/14/19 24 04/20/2023 HEPAT ITIS PANEL (A,B AND C) hcvquant HCV Not Detect ed IU/mL Not Available [facility] (Lab Registration) [address] , [place], [address], 04/20/2023 14:15:49 04/14/19 24 04/20/2023 HEPAT ITIS PANEL (A,B AND C) interpretati on Commen t . HBV Serol ogy Inter preta tion Chart ----- ----- ----- ----- ----- ----- ----- ----- ----- ----- ----- ---- ----- --- Inter preta tion HBsAg anti- HBs anti- HBc anti- HBc IgM ----- ----- ----- ----- ----- ----- ----- ----- ----- ----- ----- ---- ----- --- Vanegas - Colin te prese nt: + Colin te absen t: - Test not indic at ed: TNI ----- ----- ----- ----- ----- ----- ----- ----- ----- ----- ----- ---- ----- --- Susce ptibl e (neve r infec katia and no evide nce - - - T NI of vacci natio n) ----- ----- ----- ----- ----- ----- ----- ----- ----- ----- ----- ---- ----- --- Immun e due to natblanche al nohelia john infec tion - + + T NI ----- ----- ----- ----- ----- ----- ----- ----- ----- ----- ----- ---- ----- --- Immun e due to vacci natio n - + - T NI ----- ----- ----- ----- ----- ----- ----- ----- ----- ----- ----- ---- ----- --- Acute Infec tion + - + + ----- ----- ----- ----- ----- ----- ----- ----- ----- ----- ----- ---- ----- --- Chron ic infec tion + - + - ----- ----- ----- ----- ----- ----- ----- ----- ----- ----- ----- ---- ----- --- Inter preta tion uncle ar* - - + + /- ----- ----- ----- ----- ----- ----- ----- ----- ----- ----- ----- ---- ----- --- *Mult iple possi bilit ies: resol john infec tion (most commo n); false - posit sameera anti- HBc ([facility] raj johnson); low- level chron ic infec tion ; resol ving acute infec tion. Not Available [facility] (Lab Registration) [address], [place], [address], 04/20/2023 14:15:49 04/14/19 24 04/20/2023 HEPAT ITIS PANEL (A,B AND C) test information: Commen t . The quant itati ve range of this assay is 15 IU/mL to 100 nico on IU/mL . Not Available [facility] (Lab Registration) [address] , [place], [address], 04/20/2023 14:15:49 04/14/19 24 04/20/2023 HEPAT ITIS PANEL (A,B AND C) interpretati on: Commen t Posit sameera HCV antib karon scree n witho ut the prese nce of HCV RNA is consi stent with a resol john past infec tion or a false posit sameera HCV antib karon. Consi mau repea t testi ng after one month . Perfo rmed at: - [facility] [place] [address] [facility] [place] [address] Lab Direc tor: Marcelle baltazar MD, Phone : [phone] Not Available [facility] (Lab Registration) [address], [place], [address], 04/20/2023 14:15:49 04/14/19 24 04/14/2023 HIV 1/0/2 AG/AB (4TH GEN) note Unles s other pelaez noted testi ng perfo rmed at: [facility] [address] [place] [address] [phone] Bro jarrett MD CLIA: [id number] Not Available [facility] (Lab Registration) [address] , [place], [address], 05/05/2023 12:17:03 04/14/19 24 04/16/2023 HIV 1/0/2 AG/AB (4TH GEN) HIV screen 4TH generation wrfx Non Reacti ve non reacti ve HIV Negat sameera HIV-1 /HIV- 2 antib odies and HIV-1 p24 antig en were NOT detec katia. There is no labor atory evide nce of HIV infec tion. Perfo rmed at: [facility] Emperatriz gonzalez [address] [address] Lab Direc tor: Asael aguilera PhD, Phone : [phone] Not Available [facility] (Lab Registration) [address], [place], [address], 05/05/2023 12:17:03 05/03/19 24 05/03/2023 HCV RNA BY PCR QN RFX GENOT YPE note Unles s other pelaez noted testi ng perfo rmed at: [facility] [address] [place] [address] [phone] Bro jarrett MD CLIA: [id number] Not Available [facility] (Lab Registration) [address], [place], [address], 05/04/2023 20:15:24 05/03/19 24 05/04/2023 HCV RNA BY PCR QN RFX GENOT YPE [id number] HCV Not Detect ed IU/mL Not Available [facility] (Lab Registration) [address] [place], [address], 05/04/2023 20:15:24 05/03/19 24 05/04/2023 HCV RNA BY PCR QN RFX GENOT YPE HCV log10 TNP log10 _IU/m L Unabl e to calcu late resul t since non-n umeri c resul t obtai best for compo nent test. Not Available [facility] (Lab Registration) [address], [place], [address], 05/04/2023 20:15:24 05/03/19 24 05/04/2023 HCV RNA BY PCR QN RFX GENOT YPE HCV test information Commen t . The quant itati ve range of this assay is 15 IU/mL to 100 nico on IU/mL . Not Available [facility] (Lab Registration) [address] [place], [address], 05/04/2023 20:15:24 05/03/19 24 05/04/2023 HCV RNA BY PCR QN RFX GENOT YPE HCV genotype TNP Not indic ated Perfo rmed at: [facility] [place] [address] , [place] [address] Lab Direc tor: Marcelle baltazar MD, Phone : [phone] Not Available [facility] (Lab Registration) [address] [place], [address], 05/04/2023 20:15:24 09/21/19 24 09/21/2023 HCV RNA BY PCR QN RFX GENOT YPE note Unles s other pelaez noted testi ng perfo rmed at: [facility] [address] [place] [address] [phone] Bro jarrett MD CLIA: [id number] Not Available [facility] (Lab Registration) [address] [place], [address], 09/22/2023 21:08:36 09/21/19 24 09/22/2023 HCV RNA BY PCR QN RFX GENOT YPE [id number] HCV Not Detect ed IU/mL Not Available [facility] (Lab Registration) [address] [place], [address], 09/22/2023 21:08:36 09/21/19 24 09/22/2023 HCV RNA BY PCR QN RFX GENOT YPE HCV log10 TNP log10 _IU/m L Unabl e to calcu late resul t since non-n umeri c resul t obtai best for compo nent test. Not Available [facility] (Lab Registration) [address] [place], [address], 09/22/2023 21:08:36 09/21/19 24 09/22/2023 HCV RNA BY PCR QN RFX GENOT YPE HCV test information Commen t . The quant itati ve range of this assay is 15 IU/mL to 100 nico on IU/mL . Not Available [facility] (Lab Registration) [address] [place], [address], 09/22/2023 21:08:36 09/21/19 24 09/22/2023 HCV RNA BY PCR QN RFX GENOT YPE HCV genotype TNP Not indic ated Perfo rmed at: - [facility] [place] [address] , [place] [address] Lab Direc tor: Marcelle baltazar MD, Phone : [phone] Not Available [facility] (Lab Registration) [address], [place], [address], 09/22/2023 21:08:36 Result Notes None recorded. Problems Name Problem SNOMED Code Status Onset Date Resolution Date Notes Provider Name and Address Organization Details Recorded Time History of drug abuse 924688283 Active 023 Tea Ellsworth NP [address], [address], [place], [address], [place] [facility] [place] [facility] [place] 3 15:14:25 Chronic hepatitis C 283423342 Active 023 Tea Ellsworth NP [address], [address], [place], [address], [place] [facility] [place] [facility] [place] 3 15:14:25 Disorder of bile duct 874866173 Active 023 Tea Ellsworth NP [address], [address], [place], [address], [place] [facility] [place] [facility] [place] 3 12:23:33 Steatotic liver disease 991005514 Active 023 Tea Ellsworth NP [address], [address], [place], [address], [place] [facility] [place] [facility] [place] 3 11:39:43 Problem Notes None recorded. Procedures Surgical History Date Name Laterality Status Provider Name and Address Organization Details Recorded Time extraction of wisdom tooth completed Not Available [facility] 05/04/2022 11:29:55 Imaging Results None recorded. Procedure Notes None recorded. Medical Equipment None Reported. Allergies No known drug allergies Medications Name Sig Start Date Stop Date Status Note LastModified by Organization Details LastModified Time cyclobenzap rine 10 mg tablet active Not Available Not Available Not Available amoxicillin 500 mg capsule take 1 capsule (500 mg) by oral route 3 times per day 04/14 completed Not Available Not Available Not Available azithromyci n 250 mg tablet TAKE 2 TABLETS BY MOUTH ON DAY 1, THEN TAKE 1 TABLET DAILY ON DAYS 2-5 09/08 completed Not Available Not Available Not Available ibuprofen 800 mg tablet take 1 tablet (800 mg) by oral route 4 times per day with food active Not Available Not Available No t Available Lidocaine Viscous 2 % mucosal solution Apply thin film to affected area EVERY 4 hOUrs as needed for pain. 04/14 completed Not Available Not Available Not Available ondansetron HCl 4 mg tablet take 1 tablet (4 mg) by oral route 4 times per day as needed for nausea 04/14 completed Not Available Not Available Not Available methylpredn isolone 4 mg tablet Take as directed on package for 6 days 09/08 completed Not Available Not Available Not Available sulfamethox azole 800 mg-trimetho prim 160 mg tablet take 1 tablet by ORAL route every 12 hours for 7 days 04/14 completed Not Available Not Available Not Available dexamethaso ne 0.5 mg/5 mL oral solution take 10 millilite rs (1 mg) (2 TEASPOONF ULS)by oral route 4 times per day. Rinse and hold for 2 minutes then spit. 04/14 completed Not Available Not Available Not Available oxycodone-a cetaminophe n 5 mg-325 mg tablet take 1 tablet by oral route every 6-8 hours as needed 04/14 completed Not Available Not Available Not Available benzonatate 100 mg capsule take 1 capsule by mouth every 8 hours As needed 09/08 completed Not Available Not Available Not Available ibuprofen 600 mg tablet take 1 tablet by ORAL route every 6 hours As needed 04/14 completed Not Available Not Available Not Available Ventolin HFA 90 mcg/actuati on aerosol inhaler inhale 2 puffs every 4 hours As needed 09/08 completed Not Available Not Available Not Available buprenorphi ne 8 mg-naloxone [address] 1&1/4 tablets under tongue once a day fill today start tomorrow active Not Available Not Available No t Available chlorhexidi ne gluconate 0.12 % mouthwash Rinse with 1/2 ounce twice a day for 2 minutes then spit. 04/14 completed Not Available Not Available Not Available naloxone 4 mg/actuatio n nasal spray Inhale 1 spray nasally as needed May repeat every 2 to 3 minutes in alternati ng nostrils until EMS arrives. 09/08 completed Not Available Not Available Not Available sofosbuvir 400 mg-velpatas vir 100 mg tablet 09/08 completed Not Available Not Available Not Available Vitals Date Recorded Body height Body mass index (BMI) Body weight Body temperature Heart rate Provider Name and Address Organization Details Last Updated DateTime 08/04/2022 185.42 cm 32.6 kg/m2 744422.3 2 g 97.6 [degF] 86 /min [facility] [place] 3 11:00:23 Date Recorded Body height Body mass index (BMI) Body weight Body temperature Oxygen saturation Oxygen saturation in Arterial blood by Pulse oximetry Heart rate Provider Name and Address Organization Details Last Updated DateTime 3 185.42 cm 31.5 kg/m2 914806. 58 g 98.6 [degF] 100 % 100 % 87 /min Lisa [facility] [place] 3 10:20:25 Date Recorded Body height Body mass index (BMI) Body weight Body temperature Oxygen saturation Oxygen saturation in Arterial blood by Pulse oximetry Heart rate Provider Name and Address Organization Details Last Updated DateTime 4 185.42 cm 32.3 kg/m2 148392. 13 g 96.9 [degF] 98 % 98 % 66 /min Lisa [facility] [place] 4 09:18:57 Date Recorded Body height Body mass index (BMI) Body weight Body temperature Oxygen saturation Oxygen saturation in Arterial blood by Pulse oximetry Heart rate Provider Name and Address Organization Details Last Updated DateTime 3 185.42 cm 31.4 kg/m2 329894. 98 g 97.3 [degF] 98 % 98 % 83 /min Joslyn [facility] [place] 3 09:28:20 Date Recorded Body height Body mass index (BMI) Body weight Body temperature Oxygen saturation Oxygen saturation in Arterial blood by Pulse oximetry Heart rate Systolic blood pressure Diastolic blood pressure Provider Name and Address Organization Details Last Updated DateTime 3 185.42 cm 31.3 kg/m2 548682. 39 g 97.5 [degF] 98 % 98 % 75 /min 140 mm[Hg] 80 mm[Hg] Lisa Das [place] [facility] [place] 3 09:15:38 Social History None recorded. Functional Status Question Answer Note LastModified by Organization Details LastModified Time Do you use any illicit or recreational drugs? Hx of IV & Intranasal Drug Abuse [email or web address] Information not available 05/05/2022 What is your level of alcohol consumption? 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 Family History Relationship Description Onset Age of this Age Resolved Age Notes LastModified by Organization Details LastModified Time Mother Disorder of thyroid gland [email or web address] Not available 04/14 10:03:22 Medical History Condition Response Hepatitis Y Past Encounters Encounter ID Performer Location Encounter Start Date Encounter Closed Date Diagnosis/Indication Diagnosis SNOMED-CT Code Diagnosis ICD10 Code Diagnosis Note [id number] Tea Ellsworth NP [facility] [address] [address] 04/14/2022 09:53:06 04/14/2022 15:21:47 Chronic hepatitis C 110061277 B18.2 Plan for labs to determine genotype, viral load as well as fibrosis score. Diagnosed 4-5 years ago. Treatment naive. Recommend liver ultrasound to rule out liver mass or lesion. I have recommende d avoidance of sharing razors and toothbrush es as well as using barrier method with intercours e. Patient does voice understand ing. Plan to follow up in 4 weeks to discuss results and formulate treatment plan. History of drug abuse 37 [id number] F19.11 Last reported drug use 2018. Currently treated with Suboxone. [id number] Tea Ellsworth NP [facility] [address] [phone] 05/05/2022 10:58:03 05/05/2022 12:21:53 Chronic hepatitis C 242771842 B18.2 GT3, viral load 14.6 million with a fibrosis score F1. Diagnosed 4-5 years ago. Treatment naive. Plan to treat with Epclusa 12 weeks or Mavyret 8 weeks Plan to monitor PCR at weeks 4 and 12 following treatment. I have recommende d avoidance of sharing razors and toothbrush es as well as using barrier method with intercours e. Patient does voice understand ing. History of drug abuse 37 Last reported drug use 2019. Currently treated with Suboxone. Steatotic liver disease 680953153 K76.0 Noted on ultrasound . Recommend low-fat diet. [id number] Tea Ellsworth NP [facility] [address] [place] [phone] 06/09/2022 10:50:53 06/09/2022 11:14:03 Chronic hepatitis C [id number] B18.2 GT3, viral load 14.6 million with a fibrosis score F1. Treatment naive. He has been approved for 12 week treatment with Epclusa. He has received his first month supply in clinic today. I have discussed potential side effects as well as taking medication at the same time daily to avoid missed or skipped doses. He does voice understand ing. Plan to follow up in 4 weeks at which time will check labs to monitor. History of drug abuse 37 Last reported drug use 2019. Currently treated with Suboxone. Steatotic liver disease [id number] K76.0 Noted on ultrasound . Recommend low-fat diet. [id number] Tea Ellsworth NP [facility] [address] [phone] 07/07/2022 10:51:41 07/07/2022 11:56:34 Chronic hepatitis C [id number] B18.2 GT3, viral load 14.6 million with a fibrosis score F1. He continues treatment with Epclusa, completed 4/12 weeks. He has received his second month supply in clinic today. Plan to check HCV PCR and monitor LFT's today. Will notify patient of results. Plan to follow up in 4 weeks. History of drug abuse 37 Last reported drug use 2018. Currently treated with Suboxone. Steatotic liver disease [id number] K76.0 Noted on ultrasound . Recommend low-fat diet. [id number] Tea Ellsworth NP [facility] [address] [place], [place] [phone] 08/04/2022 10:46:28 08/04/2022 12:44:38 Chronic hepatitis C 344238382 B18.2 Continues treatment with Epclusa, completed 8/ weeks. He has received his final month supply in clinic today. Last completed 07/07/22 normal LFTs with HCV PCR <15. plan to follow up in 4 weeks at which time we will confirm SVR. [id number] Tea Ellsworth [place] [phone] 09/08/2022 10:09:01 09/09/2022 14:43:22 Chronic hepatitis C [id number] B18.2 S/P 12 week treatment Epclusa 09/04/22. Labs 07/07/22 with normal LFTs with HCV PCR <15. Recommend labs today to confirm SVR. Will notify patient of results. Steatotic liver disease [id number] K76.0 Previously noted on ultrasound . Recommend low-fat diet and increased exercise for weight loss. [id number] MADAN Tejada [facility] [address] [place], [place] [phone] 12/15/2022 09:10:30 12/15/2022 12:49:35 Chronic hepatitis C [id number] B18.2 S/P 12 week treatment Epclusa 09/04/22. Labs completed 09/08/22 with negative PCR. Plan for labs today to confirm SVR. Will notify patient of results. Steatotic liver disease 953954340 K76.0 Previously noted on ultrasound . Recommend low-fat diet and increased exercise for weight loss. He has decreased soda intake. [id number] Tea Ellsworth NP [facility] [address] [phone] 03/23/2023 09:13:16 03/23/2023 10:03:37 Chronic hepatitis C 610498842 B18.2 S/P 12 week treatment Epclusa 09/04/22. Labs completed confirmed SVR. Plan to follow up with labs today. Steatotic liver disease 700549559 K76.0 Previously noted on ultrasound . Recommend continued low-fat diet for weight loss. [id number] Tea Ellsworth NP [facility] [address] [place] [phone] 09/21/2023 09:15:47 09/21/2023 09:36:02 Chronic hepatitis C 357091422 B18.2 S/P 12 week treatment Epclusa 09/04/22. Labs completed 05/03/23 confirmed SVR. Plan to follow up with labs today. Will notify patient of results. Health Concerns Section Related Observation LastModified by Organization Detai ls LastModified Time None Recorded Concern Status LastModified by Organization Details LastModified Time None Recorded Advance Directives Directive None Recorded Payers Insurance Date Sequence Insurance Name Policy Number Policy Chambers Covered Member ID Chambers Member ID Guarantor Name 09/18/2023 1 [facility] (MEDICAID HMO) Enrique Owens [id number] Enrique Owens Notes Date Note Type Note Provider Name and Address Organization Details Recorded Time 08/04/2022 text/html Patient returns to clinic today for follow-up on hepatitis C. Continues Epclusa for HCV treatment, completed 11/13 weeks. HCV viral load <15 from 07/07/22 with normal LFT's. He has received his final month supply in clinic today. Tea Ellsworth NP [address] [place] [address], [facility] [place], [address], [facility] & [place] 08/04/2022 11:49:40 09/08/2022 text/html Patient returns to clinic today for follow-up on hepatitis C. S/P HCV treatment with 12 weeks Epclusa last week. HCV viral load <15 from 07/07/22 with normal LFT's. He continues to do well and has no complaints today. Tea Ellsworth NP [address] [facility], [address], [address], [facility] & [place] 09/09/2022 13:26:10 12/15/2022 text/html Patient returns to clinic today for follow-up on hepatitis C. S/P HCV treatment 09/2022. Confirmed SVR on labs from 09/08/22. He continues to do well at this time. History of fatty liver previously noted on ultrasound. He does report decreased soda intake at this time. Tea Ellsworth NP [address] [facility], [address], [address], [place] [facility] [place] & [place] 12/15/2022 12:10:26 03/23/2023 text/html Patient returns to clinic today for follow-up on hepatitis C. S/P HCV treatment 09/2022. Confirmed SVR on labs from 12/15/22. He continues to do well at this time. Denies abdominal pain, nausea, or vomiting. He has been having neck pain recently, currently following with chiropractor. History of fatty liver previously noted on ultrasound. Tea Ellsworth NP [address] [facility], [address], [address], [place] [facility] [place] & [place] 03/23/2023 10:00:24 09/21/2023 text/html Patient returns to clinic today for follow-up on hepatitis C. S/P HCV treatment 09/2022. Confirmed SVR on labs from 05/03/23. He continues to do well and has no complaints today. Tea Ellsworth NP [address] [facility], [address], [place], [address], [place] [facility] [place] & [place] 09/21/2023 09:32:15
--- NOTE | 2024-09-19 12:23 | XR_ITS ---
FINAL REPORT TECHNIQUE: Chest PA & Lateral CLINICAL HISTORY: Left-sided chest pain with inspiration COMPARISON: None FINDINGS: 2 views of the chest were performed. The heart size is normal. The mediastinum is within normal limits. There is no acute cardiopulmonary process. There are no pleural effusions. There is no pneumothorax. The bony thorax appears intact. IMPRESSION: No acute cardiopulmonary process. Reviewed, Interpreted and Dictated by Navi Mittal MD Transcribed by Marley Gandhi Authenticated and [facility]
--- NOTE | 2024-09-19 12:31 | ECG_ITS ---
APPROVED REPORT Exam: Resting ECG HR:74 bpm ECG Measurements Heart Rate 74 AXES VT 176 P 39 QRSd 85 QRS 85 QT 349 T 50 QTc 376 Conclusion SINUS RHYTHM NORMAL ECG UNCONFIRMED REPORT Electronically signed by : Robert Helton, 09/19/2024 15:20:52
[2024-09-19] MEDS: KETOROLAC 30MG/ML VIAL 15 MG IV (12:49)
[2024-09-19] MEDS: ACETAMINOPHEN 500MG TAB 1000 MG PO (12:50)
[2024-09-19 12:56] LABS: Basophils % 0.5 % (0.1-2.0); Eosinophils # 0.1 Kmm3 (0.0-0.4); Eosinophils % 1.6 % (0.1-12.0); Hematocrit 45.9 % (42.0-52.0); Hemoglobin 15.6 g/dL (14.1-18.0); Immature Granulocytes # 0.02 10^3uL; Immature Granulocytes % 0.3 %; Lymphocytes % 34.4 % (10-50); Mean Corpuscular Volume 82.3 fl (80-94); Mean Platelet Volume 9.3 fl (7.4-10.4); Monocytes # 0.5 K/mm3 (0.1-1.0); Monocytes % 8.3 % (1.7-9.3); Neutrophils # 3.2 K/mm3 (1.8-7.8); Neutrophils % 54.9 % (37.0-80.0); Nucleated Red Blood Cells # 0 10^3/uL; Nucleated Red Blood Cells % 0 %; Platelet Count 337 K/mm3 (142-424); Red Blood Count 5.58 M/mm3 (4.60-6.20); Red Cell Distribution Width 13.1 % (11.5-17.5); Red Cell Distribution Width-SD 39.2 fL; White Blood Count 5.8 K/mm3 (4.8-10.8)
[2024-09-19 13:11] LABS: Alanine Aminotransferase 22 U/L (12-78); Albumin Level 4.9 g/dl (3.5-5.0); Albumin/Globulin Ratio 1.3 (1.1-1.8); Alkaline Phosphatase 72 U/L (38-126); Aspartate Amino Transferase 31 U/L (17-59); Bilirubin,Total 0.7 mg/dl (0.2-1.3); Blood Urea Nitrogen 11 mg/dl (9-20); Calcium 10.4 mg/dl (8.4-10.2); Carbon Dioxide 27 mmol/L (22.0-30.0); Chloride 107 mmol/L (98-107); Creatinine Clearance Estimated 173 mL/min (50-200); Estimated Glomerular Filt Rate 95 ml/min (>60); GFR (African American) 115 ML/MIN (>60); Globulin 3.8 g/dL (1.3-3.2); Glucose 91 mg/dl (74-100); Sodium 141 mmol/L (136-145); Total Protein,Serum 8.7 g/dl (6.3-8.2)
[2024-09-19 13:17] LABS: D-Dimer 0.39 ug/mL (0.0-0.5)
[2024-09-19 13:29] LABS: Troponin I < 0.01 ng/ml (0.00-0.034)
== END 2024-09-19 14:18 | disposition home or self-care (01) ==
PROVIDERS: Physician Assistant; Emergency Provider Student in an Organized Health Care Education/Training Program
DX: R07.1 Chest pain on breathing (principal)
CPT/HCPCS: 71046; 80053; 84484; 85025; 85378; 93005; 96374; 99284; J1885